=== PATIENT | male | born 1935 | race Caucasian/White ===

== ENCOUNTER → 2017-02-13 | Outpatient (CLI) | payer OTHER ==
[~2017-02-13] MED LIST: ALPH300C PO; AMLO10TA4 PO; ASCO100019 PO; ASCO100T5 PO; ASPI-496 PO; ATOR10TA9 PO; BEE CAPS PO; BENFOTIAMINE PO; CHOL2000 PO; LECI1200 PO; LECI400C PO; LOSA50TA6 PO; MULT-658 PO; UBID300C PO; [UNRECOGNIZED DRUG - OTHER] PO
[2017-02-13 15:57] LABS: ASPARTATE AMINO TRANSFERASE 22 U/L (15-37); BLOOD UREA NITROGEN 14 mg/dL (7-18)
== END | disposition home or self-care (01) ==
LOC: STAR 14:36
PROVIDERS: ATTEND Plastic Surgery
DX: Z01.818 Encounter for other preprocedural examination (principal)
CPT/HCPCS: 36415; 80053; 93005

== ENCOUNTER 2017-02-19 13:40 | Day surgery (SDC) | payer OTHER ==
[2017-02-13 15:22] VITALS: BP 150/79
[~2017-02-19] VITALS: Ht 177.8 cm; Wt 72.7 kg
[~2017-02-19 13:40] MED LIST changes: -CEPH-368 PO; -OXYC-302 PO
[2017-02-19] MEDS ORDERED: LACTATED RINGERS 1,000 ML IV SCH (14:14)
[2017-02-19 14:18] VITALS: BP 150/79
[2017-02-19] MEDS ORDERED: MIDAZOLAM 1 MG/ML, 2ML ONE ×2 (15:31→16:14)
[2017-02-19] MEDS ORDERED: FENTANYL PF 250 MCG/5ML ONE (15:31)
[2017-02-19] MEDS ORDERED: NEOSTIGMINE 1 MG/ML, 10ML ONE (15:33)
[2017-02-19] MEDS ORDERED: PROPOFOL 10 MG/ML, 20ML ONE ×2 (15:33→16:14)
[2017-02-19] MEDS ORDERED: GLYCOPYRROLATE 0.2MG/1ML, 5ML ONE (15:33)
[2017-02-19] MEDS ORDERED: LIDOCAINE GEL 2%, 5ML ONE (15:33)
[2017-02-19] MEDS ORDERED: ONDANSETRON 2MG/ML, 2ML ONE ×2 (15:33→16:14)
[2017-02-19] MEDS ORDERED: SUCCINYLCHOLINE 20 MG/ML, 10ML ONE ×2 (15:33→16:14)
[2017-02-19] MEDS ORDERED: DEXAMETHASONE 4 MG/ML, 1ML ONE ×2 (15:33→16:14)
[2017-02-19] MEDS ORDERED: CEFAZOLIN 1,000 MG ONE ×2 (15:33→16:14)
[2017-02-19] MEDS ORDERED: ROCURONIUM 10 MG/ML,10ML ONE ×4 (15:33→16:14)
[2017-02-19] MEDS ORDERED: PHENYLEPHRINE 10 MG/ML ONE (16:14)
[2017-02-19] MEDS ORDERED: FENTANYL PF 100 MCG/2ML ONE (16:14)
[2017-02-19] MEDS ORDERED: EPINEPHRINE 1 MG/ML, 1ML ONE (16:33)
[2017-02-19] MEDS ORDERED: BUPIVACAINE/PF 0.5% ONE (16:33)
[2017-02-19] MEDS ORDERED: EPHEDRINE 50 MG/ML, 1ML ONE (16:45)
[2017-02-19] MEDS ORDERED: MIDAZOLAM 1 MG/ML, 2ML IV PRN (17:00)
[2017-02-19] MEDS ORDERED: OXYcodone 5 MG/5 ML ORAL.SOL UDC PO PRN (17:00)
[2017-02-19] MEDS ORDERED: PROMETHAZINE 25 MG/ML, 1ML IV PRN (17:00)
[2017-02-19] MEDS ORDERED: ONDANSETRON 2MG/ML, 2ML IVPush PRN (17:00)
[2017-02-19] MEDS ORDERED: HYDROmorphone 1 MG/ML, 1ML IV PRN (17:00)
[2017-02-19] MEDS ORDERED: LABETALOL 5MG/ML, 20ML IV PRN (17:00)
[2017-02-19] MEDS ORDERED: hydrALAzine 20 MG/ML, 1ML IV PRN (17:00)
[2017-02-19] MEDS ORDERED: MEPERIDINE/PF 25MG/0.5ML IVPush PRN (17:00)
[2017-02-19] MEDS ORDERED: ACETAMINOPHEN 325 MG TABLET PO PRN (17:00)
[2017-02-19] MEDS ORDERED: ALBUTEROL/IPRATROPIUM 2.5MG/0.5MG, 3 ML NPPB PRN (17:00)
[2017-02-19] MEDS ORDERED: FENTANYL PF 100 MCG/2ML IV PRN (17:00)
[2017-02-19] MEDS ORDERED: BUPIVACAINE/PF 0.5% INFIL ONE (17:05)
[2017-02-19] MEDS ORDERED: ACETAMINOPHEN 650 MG/20.3 ML UDC ONE (18:19)
[2017-02-19] MEDS ORDERED: OXYcodone 5 MG/5 ML ORAL.SOL UDC ONE (18:19)
[2017-02-19] MEDS ORDERED: LABETALOL 5MG/ML, 20ML ONE (18:24)
[2017-02-19] MEDS ORDERED: OXYC-302 PO (22:06)
[2017-02-19] MEDS ORDERED: CEPH-368 PO (22:07)
== END 2017-02-19 22:50 | disposition home or self-care (01) ==
LOC: OUT 13:40 → 4NOR 19:01 → OUT 22:50
PROVIDERS: ATTEND Plastic Surgery
DX: C43.62 Malignant melanoma of left upper limb, including shoulder (principal)
CPT/HCPCS: 14020; 38500; 88305; 88307; 88333; J0171; J0330; J0690; J1100; J2250; J2370; J2405; J2704; J2710; J3010; J3490; J7120

== ENCOUNTER → 2017-02-19 | Outpatient (CLI) | payer OTHER ==
[~2017-02-19] MED LIST changes: +CEPH-368 PO; +OXYC-302 PO
== END | disposition home or self-care (01) ==
LOC: RAD 12:02
PROVIDERS: ATTEND Plastic Surgery
DX: C96.9 Malignant neoplasm of lymphoid, hematopoietic and related tissue, unspecified (principal); C79.2 Secondary malignant neoplasm of skin
CPT/HCPCS: 78195; A9541